=== PATIENT | female | born 2005 | race Caucasian/White ===

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

== ENCOUNTER 2023-08-01 21:16 | Emergency (ER) | payer OTHER ==
--- NOTE | 2023-08-01 21:39 | ED ---
Chest Pain HPI - General Chief Complaint: Chest Pain Stated Complaint: Chest Pain Time Seen by Provider: 08/01/23 21:33 Source: patient, RN notes reviewed Mode of arrival: ambulatory Limitations: no limitations - History of Present Illness Initial Comments: Patient is a 18 year old who presents to the emergency department for chest pain and syncopal episode. - Related Data Home Medications Medication Instructions Recorded Confirmed norgestimate-ethinyl estradioL 1 tab PO DAILY@1230 06/16/22 07/05/22 [[id number] Tablet] Previous Rx's Medication Instructions Recorded Hyoscyamine Sulfate [Levsin] 0.125 mg PO Q4H PRN #20 tab 06/16/22 Ondansetron Odt [Zofran Odt] 4 mg PO Q8HR PRN #15 tab 06/16/22 Pantoprazole [Protonix] 40 mg PO DAILY 21 Days #21 tab 06/16/22 Pantoprazole Sodium [Protonix] 20 mg PO DAILY #20 tab 07/05/22 Sucralfate [Carafate] 1 gm PO BID #20 tablet 07/05/22 Allergies Allergy/AdvReac Type Severity Reaction Status Date / Time amoxicillin Allergy Unknown Verified 07/05/22 21:20 clindamycin Allergy Rash/Hives Verified 07/05/22 21:20 ibuprofen [From Motrin] Allergy Unknown Verified 07/05/22 21:20 trimeprazine Allergy Rash/Hives Verified 07/05/22 21:20 Review of Systems ROS Statement: Those systems with pertinent positive or pertinent negative responses have been documented in the HPI. ROS Other: All systems not noted in ROS Statement are negative. Past Medical History Past Medical History: No Reported History History of Any Multi-Drug Resistant Organisms: None Reported Past Surgical History: Tonsillectomy Past Psychological History: Anxiety, Depression Smoking Status: Never smoker Past Alcohol Use History: None Reported Past Drug Use History: None Reported General Exam - General Exam Comments Initial Comments: Visual Physical Exam Vital signs reviewed General: Well-appearing, nontoxic, no acute distress. Head: Normocephalic, atraumatic Eyes: PERRLA, EOMI ENT: Airway patent Chest: Nonlabored breathing Skin: No visual rash, normal skin tone Neuro: Alert and oriented 3 Musculoskeletal: No gross abnormalities Limitations: no limitations Course Vital Signs 08/01/23 21:29 Temperature 98.8 F Pulse Rate 87 Respiratory 18 Rate Blood Pressure 99/70 O2 Sat by Pulse 98 Oximetry Chest Pain MDM - MDM I performed the QuickNote portion of this chart - Rach Harp PA-C Disposition Clinical Impression: Chest pain Disposition: LEFT AGAINST MEDICAL ADVICE Condition: Undetermined Referrals: Jayy Green III, MD [Primary Care Provider] - 1-2 days
[2023-08-01 21:45] VITALS: BP 99/70; PULSE 87; RESP 18; TEMP 98.8
[2023-08-01 22:36] LABS: Basophils % (A) 1 %; Eosinophils # (A) 0.3 k/uL (0-0.7); Eosinophils % (A) 4 %; HCT 38.6 % (34.0-46.0); HGB 13.3 gm/dL (11.4-16.0); Lymphocytes # (A) 3.1 k/uL (1.0-4.8); Lymphocytes % (A) 45 %; MCH 31.6 pg (25.0-35.0); MCHC 34.6 g/dL (31.0-37.0); MCV 91.3 fL (80.0-100.0); Mean Platelet Volume 7.3; Monocytes # (A) 0.4 k/uL (0-1.0); Monocytes % (A) 5 %; Neutrophils % (A) 44 %; Platelet Count 232 k/uL (150-450); RBC 4.22 m/uL (3.80-5.40); RDW 12.7 % (11.5-15.5)
--- NOTE | 2023-08-01 22:37 | XR ---
EXAM: XR Chest, 2 Views CLINICAL HISTORY: ITS.REASON XR Reason: Chest Pain TECHNIQUE: Frontal and lateral views of the chest. COMPARISON: No relevant prior studies available. FINDINGS: Lungs: Unremarkable. No consolidation. Pleural space: Unremarkable. No pneumothorax. Heart: Unremarkable. No cardiomegaly. Mediastinum: Unremarkable. Bones/joints: Unremarkable. IMPRESSION: Normal chest x-rays.
[2023-08-01 22:46] LABS: ALT 12 U/L (4-34); AST 20 U/L (14-36); African American GFR (CKD) >90 (>60 ml/min/1.73 sqM); Albumin 4.1 g/dL (3.5-5.0); Alkaline Phosphatase 36 U/L (38-126); Anion Gap 9 mmol/L; Blood Urea Nitrogen 9 mg/dL (7-17); Carbon Dioxide 22 mmol/L (22-30); Chloride 108 mmol/L (98-107); Glucose 121 mg/dL (74-99); Lipase 65 U/L (23-300); Magnesium 2.1 mg/dL (1.6-2.3); Non-African American GFR(CKD) >90 (>60 ml/min/1.73 sqM); Potassium 3.7 mmol/L (3.5-5.1); Sodium 139 mmol/L (137-145); Total Bilirubin 0.4 mg/dL (0.2-1.3); Total Protein 6.9 g/dL (6.3-8.2)
[2023-08-01 23:04] LABS: INR 1.1 (<1.2); Partial Thromboplastin Time 26.3 sec (22.0-30.0); Prothrombin Time 11.4 sec (10.0-12.5)
== END 2023-08-02 00:06 | disposition left against medical advice (07) ==
LOC: EC 21:16
DX: R07.9 Chest pain, unspecified (principal); Z53.29 Procedure and treatment not carried out because of patient's decision for other reasons; Z88.0 Allergy status to penicillin; Z88.1 Allergy status to other antibiotic agents; Z88.6 Allergy status to analgesic agent; Z88.2 Allergy status to sulfonamides
CPT/HCPCS: 36415; 71046; 80053; 83690; 83735; 84484; 85025; 85610; 85730; 93005; 99284

== ENCOUNTER → 2023-08-21 | Outpatient (CLI) | payer OTHER ==
--- NOTE | 2023-08-21 17:57 | CA ---
Exercise Stress Test Report Name: Brianne Goodson Exam Date: 08/21/2023 09:49 Exam Location: [facility] Stress Ht (in): 68 Wt (lb): 474 BSA: 2.95 Ordering Phys: Mireille Umana DO Referring Phys: Cynthia Spain PAC Technologist: Rinku Mccoy Age: 18 Gender: F : 2005 Procedure CPT: Indications: R07.9 CHEST PAIN R55 SYNCOPE AND COLLAPSE ICD-10 Codes: Patient History: ARIELLA, PALP. VAPES Medications: CONTROL Meds past 24 hrs: Pretest Chest Pain: STRESS TEST Richardson Protocol Exercise Duration (min:sec): 06:[address] Depressions (mm): Angina Score: Lester Score: Resting HR (bpm): 85 Peak HR (bpm): 178 Resting BP (mmHg): 91 / 63 Peak BP (mmHg): 134 / 63 MPHR: 200 Target HR: 170 % MPHR: 89 METS: 7.7 Total Dose: Peak Dose: Atropine: Double Product: 27567 BP Response: Stress Termination: Stress Symptoms: No chest pain or symptoms Stress Summary: The patient's target heart rate was achieved ECG ANALYSIS Resting ECG: Normal sinus rhythm for operative progression normal axis normal intervals Stress ECG: No significant ST segment depression CONCLUSIONS Poor exercise tolerance Negative stress test by EKG criteria Dr. Trevor Amaya MD (Electronically Signed) Final Date: 21 August 2023 17:56
== END | disposition home or self-care (01) ==
LOC: RADNMMAIN 09:26
PROVIDERS: ATTEND Family Medicine
DX: R07.9 Chest pain, unspecified (principal); R55 Syncope and collapse
CPT/HCPCS: 93017

== ENCOUNTER 2023-10-19 17:08 | Emergency (ER) | payer OTHER ==
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
--- NOTE | 2023-10-19 18:37 | US ---
EXAMINATION TYPE: US extremity nonvasc mass LT DATE OF EXAM: 10/19/2023 COMPARISON: NONE CLINICAL INDICATION: Female, 18 years old with history of L 3rd digit infection, r/o abscess; Pt's le ft middle finger acrylic nail got ripped off. Regular nail is still partially attached to skin. Pt st ates there was white pus coming out. R/O abscess TECHNIQUE: Left middle finger nail bed scanned FINDINGS: Compared to the left index finger, there appears to be some edema. There is some vascular flow. Limited exam due to dropout IMPRESSION: Limited study. No definite abscess is seen.
[2023-10-19] MEDS ORDERED: SULFAMETH-TMP DS STARTER PACK 2 TAB BTL PO STA (19:54)
[2023-10-19 20:10] VITALS: BP 116/82; PULSE 68; RESP 17; TEMP 98
== END 2023-10-19 20:02 | disposition home or self-care (01) ==
LOC: EC 17:08
DX: L03.012 Cellulitis of left finger (principal); F17.290 Nicotine dependence, other tobacco product, uncomplicated; Z86.59 Personal history of other mental and behavioral disorders; Z88.0 Allergy status to penicillin; Z88.1 Allergy status to other antibiotic agents; Z88.6 Allergy status to analgesic agent; Z88.8 Allergy status to other drugs, medicaments and biological substances
CPT/HCPCS: 99283

== ENCOUNTER 2023-12-07 08:36 | Emergency (ER) | payer OTHER ==
[2023-12-07 09:03] VITALS: RESP 18
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
[2023-12-07 09:47] LABS: Basophils % (A) 1 %; Eosinophils # (A) 0.2 k/uL (0-0.7); Eosinophils % (A) 4 %; HGB 13.5 gm/dL (11.4-16.0); Lymphocytes # (A) 2.2 k/uL (1.0-4.8); Lymphocytes % (A) 33 %; MCH 31.1 pg (25.0-35.0); MCV 94.3 fL (80.0-100.0); Mean Platelet Volume 7.4; Monocytes # (A) 0.3 k/uL (0-1.0); Monocytes % (A) 4 %; Neutrophils # (A) 3.7 k/uL (1.3-7.7); Neutrophils % (A) 56 %; Platelet Count 229 k/uL (150-450); RBC 4.35 m/uL (3.80-5.40); RDW 12.7 % (11.5-15.5); WBC 6.6 k/uL (4.0-11.0)
[2023-12-07 10:06] LABS: ALT 17 U/L (4-34); AST 25 U/L (14-36); African American GFR (CKD) >90 (>60 ml/min/1.73 sqM); Albumin 4.1 g/dL (3.5-5.0); Alkaline Phosphatase 49 U/L (38-126); Anion Gap 6 mmol/L; Blood Urea Nitrogen 9 mg/dL (7-17); Carbon Dioxide 24 mmol/L (22-30); Chloride 110 mmol/L (98-107); Glucose 96 mg/dL (74-99); Non-African American GFR(CKD) >90 (>60 ml/min/1.73 sqM); Potassium 4.5 mmol/L (3.5-5.1); Sodium 140 mmol/L (137-145); Total Bilirubin 0.4 mg/dL (0.2-1.3); Total Protein 6.9 g/dL (6.3-8.2)
[2023-12-07 10:19] LABS: HCG,Quantitative Serum 245.8 mIU/mL
--- NOTE | 2023-12-07 10:37 | US ---
EXAMINATION TYPE: Ultrasound OB <= 14 week fetus DATE OF EXAM: 12/07/2023 9:47 AM COMPARISON: NONE CLINICAL INDICATION: Female, 18 years old with history of Vaginal bleeding in ; patient had been clotting this am with cramping, EXAM PERFORMED: OBTA EXAM MEASUREMENTS: GESTATIONAL AGE / DATING Physician Established: Not yet established Dates by LMP: (5 weeks/6 days) EDC: 08-02-2024 Dates by First Scan: No previous this is first scan Dates by Current Scan for: No IUP seen at this time MATERNAL ANATOMY Uterus: 6.7 x 4.5 x 3.6cm Right Ovary: 4.1 x 2.2 x 1.9cm Left Ovary: 2.3 x 1.8 x 1.8cm Post CDS / Adnexa: wnl Presence of free fluid: no Presence of corpus luteal cyst: not seen Presence of subchorionic bleed: no GESTATION / SURVEY IUP: No IUP seen at this time Endometrium = 0.4cm Date of LMP: 10/27/2023 Beta HcG (if available): pending IMPRESSION: 1. Transabdominal scanning with no intrauterine seen. Note that the threshold for visualiza tion of an intrauterine gestational sac by transabdominal scanning is a beta-hCG of around 2500. 2. In the setting of a positive test, current differential considerations include too early to visualize intrauterine , failed , and nonvisualized ectopic . Appropri ate follow-up advised.
[2023-12-07 10:56] LABS: Appearance,Urine Clear (Clear); Bacteria,Urine Rare /hpf; Bilirubin,Urine Negative (Negative); Blood,Urine Small (Negative); Color,Urine Colorless; Glucose,Urine (UA) Negative (Negative); Ketones,Urine Negative (Negative); Leukocyte Esterase,Urine Negative (Negative); Nitrite,Urine Negative (Negative); PH, Urine 6.5 (5.0-8.0); Protein,Urine Negative (Negative); RBC,Urine 1 /hpf (0-5); Specific Gravity,Urine 1.003 (1.001-1.035); Squamous Epithelial Cell,Urine <1 /hpf (0-4); Urobilinogen,Urine <2.0 mg/dL (<2.0); WBC,Urine 1 /hpf (0-5)
[2023-12-07] MEDS: Rhogam IMMUNE GLOBULIN 1,500 UNIT/1 ML IM ONE (11:53)
[2023-12-07 12:04] VITALS: BP 130/80; PULSE 86; TEMP 98.1
== END 2023-12-07 12:04 | disposition home or self-care (01) ==
LOC: EC 08:36
DX: O20.0 Threatened abortion (principal); O99.331 Smoking (tobacco) complicating pregnancy, first trimester; F17.290 Nicotine dependence, other tobacco product, uncomplicated; Z86.59 Personal history of other mental and behavioral disorders; Z3A.01 Less than 8 weeks gestation of pregnancy; Z88.6 Allergy status to analgesic agent; Z88.0 Allergy status to penicillin; Z88.1 Allergy status to other antibiotic agents
CPT/HCPCS: 36415; 86900; 86901; 80053; 85025; 86850; 81001; 84702; 76801; 99284; 96372; J2790

== ENCOUNTER → 2023-12-09 | Outpatient (CLI) | payer OTHER | END | disposition home or self-care (01) | LOC: LABMAIN 12:51 | PROVIDERS: ATTEND Physician Assistant | DX: O03.9 Complete or unspecified spontaneous abortion without complication (principal) | CPT/HCPCS: 84702 ==

== ENCOUNTER 2024-03-05 07:52 | Day surgery (SDC) | payer OTHER ==
[2024-03-01 10:36] VITALS: BMI 20.5
[~2024-03-05 07:52] MED LIST: SODIUM CHLORIDE 0.9% 1,000 ML IV SCH
[2024-03-05] MEDS: SODIUM CHLORIDE 0.9% 500 ML 500 ML IV ONE (08:13)
[2024-03-05 08:19] VITALS: BP 96/60; PULSE 61; RESP 16; TEMP 97.8
--- NOTE | 2024-03-05 20:35 | P.EPPROC ---
- EP Procedure Note Electrophysiology Procedure Note: Diagnosis Recurrent syncope Twelve-lead EKG showed sinus rhythm normal MO narrow QRS normal ST segments normal QT interval Tilt table test per protocol Baseline blood pressure 93/54 mmHg, baseline heart rate 60 beats a minute Patient was tilted upright in angle of 70 degrees per protocol Her blood pressure remained between 90 to 100 mmHg systolic and diastolics mostly in the 50s. Heart rate increased to 90 beats a minute and then subsequently to about 104 beats a minute in the first 10 minutes It remained so until she was laid supine When she was laid supine her heart rate dropped down to 53 beats a minute Impression Normal twelve-lead EKG Orthostatic intolerance with heaviness in the chest and fatigue in the legs
== END 2024-03-05 09:27 | disposition home or self-care (01) ==
LOC: CATHEP 07:52
PROVIDERS: ATTEND Internal Medicine Clinical Cardiac Electrophysiology
DX: R55 Syncope and collapse (principal); R01.1 Cardiac murmur, unspecified; R00.2 Palpitations; Z88.0 Allergy status to penicillin; Z88.1 Allergy status to other antibiotic agents; Z88.6 Allergy status to analgesic agent; Z88.8 Allergy status to other drugs, medicaments and biological substances; F17.210 Nicotine dependence, cigarettes, uncomplicated; Z79.3 Long term (current) use of hormonal contraceptives
CPT/HCPCS: 81025; 93660

== ENCOUNTER → 2024-08-19 | Outpatient (CLI) | payer MEDICAID ==
[2024-08-19 15:11] LABS: HCT 40.2 % (37.2-46.3); HGB 13.2 g/dL (12.0-15.0); MCH 31.2 pg (27.0-32.0); MCHC 32.8 g/dL (32.0-37.0); Mean Platelet Volume 9.7 FL (9.5-12.2); NRBC Per 100 WBC 0 X 10*3/uL (0.00-0.01); Platelet Count 229 X 10*3/uL (140-440); RBC 4.23 X 10*6/uL (4.10-5.20); RDW 12.7 % (11.5-14.5); WBC 5.24 X 10*3/uL (4.50-10.00)
[2024-08-19 15:21] LABS: ALT 17 U/L (8-44); AST 22 U/L (13-35); Albumin 4.4 g/dL (3.8-4.9); Alkaline Phosphatase 49 U/L (41-126); BUN/Creat Ratio 11.44 Ratio (12.00-20.00); Blood Urea Nitrogen 10.3 mg/dL (9.0-27.0); Carbon Dioxide 22.9 mmol/L (21.6-31.8); Chloride 104 mmol/L (96-109); Chol/HDL Ratio 3.07 Ratio; Globulin 2.2 g/dL (1.6-3.3); Glucose 123 mg/dL (70-110); LDL Cholesterol,Calculated 99.9 mg/dL (0.0-131.0); Sodium 138 mmol/L (135-145); Total Bilirubin 0.6 mg/dL (0.3-1.2); Total Protein 6.6 g/dL (6.2-8.2); VLDL Calculation 14.72 mg/dL (5.00-40.00)
[2024-08-19 16:45] LABS: HSV I IgG Interp Positive (Negative); HSV II IgG Interp Negative (Negative)
[2024-08-19 16:46] LABS: HIV 2 AB Non-Reactive (Non-Reactive); HIV AB P24 Non-Reactive (Non-Reactive); HIV P24 AG Non-Reactive (Non-Reactive)
[2024-08-20 13:52] LABS: C. trachomatis,PCR Negative (Negative); N. gonorrhoeae,PCR Negative (Negative)
== END | disposition home or self-care (01) ==
LOC: LABWHC1 10:45
PROVIDERS: ATTEND Physician Assistant
DX: Z11.3 Encounter for screening for infections with a predominantly sexual mode of transmission (principal); Z13.220 Encounter for screening for lipoid disorders; K92.1 Melena; R73.01 Impaired fasting glucose; R53.83 Other fatigue
CPT/HCPCS: 36415; 80053; 80061; 80074; 83036; 84443; 85027; 86695; 86696; 86780; 87390; 87491; 87591

== ENCOUNTER 2024-09-02 08:11 | Day surgery (SDC) | payer MEDICAID ==
[2024-08-27 14:46] VITALS: BMI 21.7
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
[2024-09-02 08:45] VITALS: RESP 16; TEMP 98.1
[2024-09-02] MEDS: LACTATED RINGERS 1,000 ML BAG IV STA (08:54)
[2024-09-02] MEDS: IV FLUID CONTINUATION 1,000 ML IV ONE (08:55)
[2024-09-02] MEDS ORDERED: PROPOFOL 10 MG/ML 20 ML VIAL IV ONE (09:34)
[2024-09-02] MEDS ORDERED: LIDOCAINE 1% INJ 10MG/ML (20 ML MDV) ONE (09:34)
--- NOTE | 2024-09-02 09:49 | P.PCN ---
Date of Procedure: 09/02/24 Description of Procedure: PREOPERATIVE DIAGNOSIS: Gastrointestinal bleeding POSTOPERATIVE DIAGNOSIS: Gastritis. History of gastrointestinal bleeding OPERATION: Esophagogastroduodenoscopy with biopsies along esophagus, antrum and duodenum SURGEON: Whit Edouard MD ANESTHESIA: MAC. INDICATIONS: The patient is a 19-year-old female who presents with gastrointestinal bleeding. Benefits and risks of the procedure were described. Informed consent was obtained. DESCRIPTION: The patient was brought into the endoscopy suite and laid in the left lateral decubitus position. An Olympus gastroscope was passed along the posterior oropharynx down to the distal esophagus where the squamocolumnar junction was encountered at 42 cm from the incisors. The stomach was entered and no bile reflux was found. Additional findings are listed below. Biopsies with cold forceps were obtained of the antrum. The first through third portion of the duodenum was examined. Retroflexion of the scope confirmed Hill grade 2 lower esophageal valve. The squamocolumnar junction demonstrated LA grade A erosive esophagitis. The stomach was desufflated. The patient tolerated the procedure well. FINDINGS: Squamocolumnar junction 42 cm from the incisors. Diaphragmatic hiatus at 42 cm. Hill grade 2 lower esophageal valve. LA grade A erosive esophagitis. Biopsies obtained. Biopsies obtained of the duodenum. Chronic gastritis with biopsies obtained. RECOMMENDATIONS: Upper endoscopy as needed.
--- NOTE | 2024-09-02 10:10 | P.PCN ---
Date of Procedure: 09/02/24 Description of Procedure: PREOPERATIVE DIAGNOSIS: Gastrointestinal bleeding Change in bowel habits POSTOPERATIVE DIAGNOSIS: Microscopic colitis OPERATION: Colonoscopy to the cecum, ileocecal valve and appendiceal orifice. Colonoscopy with random cold forceps biopsies for microscopic colitis SURGEON: Whit Edouard MD. ANESTHESIA: MAC. INDICATIONS: The patient is a 19-year-old female who presents with altered stools including change in bowel habits and gastrointestinal bleeding. Benefits and risks were described and informed consent was obtained. DESCRIPTION OF PROCEDURE: The patient had undergone Suprep. The patient had been brought into the operating room and laid in the left lateral decubitus position. After adequate intravenous sedation, the rectum was examined with 2% lidocaine jelly. No external hemorrhoids were encountered. The rectal tone was within normal limits. No lesions were palpated in the rectal vault. An Olympus colonoscope was advanced until the cecum, ileocecal valve and appendiceal orifice were clearly viewed. The prep was good. No scattered diverticulosis was encountered. No colonic polyps were found. Cold forceps biopsies randomly were obtained for microscopic colitis. Retroflexion of the scope demonstrated grade 1 internal hemorrhoids without active bleeding or inflammation. The colon was desufflated. The patient had tolerated the procedure well. Withdrawal time was over 6 minutes. FINDINGS: Aronchick preparation quality scale 1+ (1-5) Internal hemorrhoids, grade 1 Redundant sigmoid colon requiring abdominal wall pressure No external prolapsed hemorrhoids. No arteriovenous malformations. No adenomatous polyps. Cold forceps biopsies obtained for microscopic colitis RECOMMENDATIONS: Lower endoscopy as needed Plan - Discharge Summary Discharge Rx Participant: No New Discharge Prescriptions: No Action No Known Home Medications Discharge Medication List No Known Home Medications 03/01/24 [History] Follow up Appointment(s)/Referral(s): Whit Edouard MD [STAFF PHYSICIAN] - 09/17/24 4:30 pm Patient Instructions/Handouts: Moderate Sedation (DC) Discharge Disposition: HOME SELF-CARE
[2024-09-02 10:51] VITALS: BP 103/84; PULSE 88
== END 2024-09-02 10:51 | disposition home or self-care (01) ==
LOC: ORWHC2ENDO 08:11
PROVIDERS: ATTEND Surgery Plastic and Reconstructive Surgery
DX: K29.51 Unspecified chronic gastritis with bleeding (principal); K64.0 First degree hemorrhoids; K21.00 Gastro-esophageal reflux disease with esophagitis, without bleeding; K51.90 Ulcerative colitis, unspecified, without complications; F41.9 Anxiety disorder, unspecified; F32.A Depression, unspecified; Z88.5 Allergy status to narcotic agent; Z90.89 Acquired absence of other organs; Z88.6 Allergy status to analgesic agent
CPT/HCPCS: 81025; 45380; 43239; J2003; J2704; 88305

== ENCOUNTER → 2024-09-26 | Outpatient (CLI) | payer MEDICAID ==
--- NOTE | 2024-09-27 17:34 | US ---
EXAMINATION TYPE: US gallbladder DATE OF EXAM: 09/26/2024 COMPARISON: 07/05/22 CLINICAL INDICATION: Female, 19 years old with history of R10.11 RUQ PAIN; RUQ pain after eating TECHNIQUE: Grayscale and color Doppler imaging of the right upper quadrant was performed. FINDINGS: EXAM MEASUREMENTS: Liver Length: 13.6 cm Gallbladder Wall: 0.23 cm CBD: 0.33 cm Right Kidney: 10.7 x 4.1 x 3.9 cm YARD HOSTLER NOTES: Pancreas: wnl Liver: hyperechoic area seen in rt lobe measuring 1.6 x 1.2 x 1.2cm Gallbladder: wnl Evidence for sonographic Scott's sign: No CBD: wnl Right Kidney: wnl IMPRESSION: Hyperechoic lesion within the right hepatic lobe which is most compatible in the absence of risk fact ors of a hepatic hemangioma. [facility], , 09/27/2024 5:32 PM
== END | disposition home or self-care (01) ==
LOC: RADUSWWP 07:14
PROVIDERS: ATTEND Surgery Plastic and Reconstructive Surgery
DX: R93.2 Abnormal findings on diagnostic imaging of liver and biliary tract (principal)
CPT/HCPCS: 76705

== ENCOUNTER → 2024-09-27 | Outpatient (CLI) | payer MEDICAID ==
--- NOTE | 2024-09-27 09:11 | NM ---
EXAMINATION TYPE: NM hepatobiliary w CCK DATE OF EXAM: 09/27/2024 COMPARISON: NONE CLINICAL INDICATION: Female, 19 years old with history of R10.11 Right upper quadrant pain; TECHNIQUE: DOSAGE: The patient received 8 0z Ensure plus and 5.3 mCi of Technetium 99m Choletec. FINDINGS: There is patchy hepatic extraction which could be artifactual. Correlate with scheduled ult rasound report. The gallbladder is seen by 10 minutes. There is biliary to bowel clearance not seen at 60 minutes which is a nonspecific finding. Ejection fraction is 90 %. IMPRESSION: 1. No evidence of cholecystitis. 2. Ejection fraction of 90% can occasionally be associated with hyperdynamic gallbladder. [facility], , 09/27/2024 9:09 AM
== END | disposition home or self-care (01) ==
LOC: RADNMMAIN 06:54
PROVIDERS: ATTEND Surgery Plastic and Reconstructive Surgery
DX: R10.11 Right upper quadrant pain (principal)
CPT/HCPCS: 78227; A9537; J2805

== ENCOUNTER → 2024-12-19 | Outpatient (CLI) | payer MEDICAID ==
[2024-12-19 18:38] LABS: HCT 39.1 % (37.2-46.3); HGB 13.1 g/dL (12.0-15.0); MCH 31.4 pg (27.0-32.0); MCHC 33.5 g/dL (32.0-37.0); MCV 93.8 FL (80.0-97.0); Mean Platelet Volume 9.5 FL (9.5-12.2); NRBC Per 100 WBC 0 X 10*3/uL (0.00-0.01); Platelet Count 232 X 10*3/uL (140-440); RBC 4.17 X 10*6/uL (4.10-5.20); WBC 6.51 X 10*3/uL (4.50-10.00)
== END | disposition home or self-care (01) ==
LOC: LABPAT 14:34
PROVIDERS: ATTEND Surgery Plastic and Reconstructive Surgery
DX: Z01.812 Encounter for preprocedural laboratory examination (principal); K81.9 Cholecystitis, unspecified
CPT/HCPCS: 85027

== ENCOUNTER 2024-12-20 13:36 | Day surgery (SDC) | payer MEDICAID ==
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
--- NOTE | 2024-12-20 09:06 | P.HPADDEND ---
H&P Addendum H&P Addendum Date: 12/20/24 Patient having delay in surgery today as she is arranging for coming to the hospital for surgery. Patient missed her earlier time slot due to lack of personal arrangements this morning.
--- NOTE | 2024-12-20 10:02 | P.PN ---
Progress Note - Text Progress Note Date: 12/20/24 Patient notified the office that she will be able to make her surgery. Surgery time being arranged for her case today
[~2024-12-20 13:36] MED LIST changes: +INDOCYANINE GREEN 25 MG VIAL IV STA; +LACTATED RINGERS 1,000 ML IV SCH; +LIDOCAINE 1% (10MG/ML) FOR IV START INTRADERMA PRN; +MIDAZOLAM 2 MG/2 ML VIAL IV PRN; +ONDANSETRON 4 MG/2 ML VIAL IVP PRN; -SODIUM CHLORIDE 0.9% 1,000 ML IV SCH; +fentaNYL (PF) 50 MCG/ML 2 ML AMP IVP PRN
[2024-12-20 14:12] VITALS: RESP 16
[2024-12-20] MEDS: ONDANSETRON 4 MG/2 ML VIAL IVP ONE (14:21)
[2024-12-20] MEDS: ACETAMINOPHEN TAB 500 MG TAB PO PRN (14:21)
[2024-12-20] MEDS: DEXAMETHASONE SOD PHOSPHATE 4 MG/ML 1 ML VIAL IV ONE (14:21)
[2024-12-20] MEDS: HEPARIN SODIUM,PORCINE 5,000 UNIT/ML 1 ML VIAL SQ PRN (14:21)
[2024-12-20] MEDS: IV FLUID CONTINUATION 1,000 ML IV ONE ×2 (14:22→17:02)
[2024-12-20] MEDS ORDERED: ROCURONIUM 10 MG/ML (5 ML VIAL) IV ONE (15:55)
[2024-12-20] MEDS ORDERED: NEOSTIGMINE 1 MG/ML 10 ML VIAL ONE (15:55)
[2024-12-20] MEDS ORDERED: LIDOCAINE 1% INJ 10MG/ML (20 ML MDV) ONE (15:55)
[2024-12-20] MEDS ORDERED: GLYCOPYRROLATE 0.2 MG/ML 2 ML VIAL ONE (15:55)
[2024-12-20] MEDS ORDERED: MIDAZOLAM 2 MG/2 ML VIAL ONE (15:55)
[2024-12-20] MEDS ORDERED: PROPOFOL 10 MG/ML 20 ML VIAL IV ONE (15:55)
[2024-12-20] MEDS ORDERED: fentaNYL (PF) 50 MCG/ML 2 ML AMP ONE (15:55)
[2024-12-20] MEDS ORDERED: SUCCINYLCHOLINE CHLORIDE 200 MG/10 ML VIAL IV ONE (15:55)
[2024-12-20] MEDS: BUPIVACAINE (PF) 0.25% 30 ML VIAL SQ ONE (15:55)
[2024-12-20] MEDS ORDERED: HYDROmorphone (PF) 1 MG/ML ONE (15:55)
[2024-12-20 17:15] VITALS: TEMP 97.1
--- NOTE | 2024-12-20 17:39 | P.OP ---
Date of Procedure: 12/20/24 Description of Procedure: SURGEON: WHIT EDOUARD MD PREOPERATIVE DIAGNOSES: 1. Chronic cholecystitis 2. Epigastric and right upper quadrant abdominal pain POSTOPERATIVE DIAGNOSES: 1. Chronic cholecystitis 2. Epigastric and right upper quadrant abdominal pain 3. Peritoneal adhesions OPERATION: Robotic-assisted da Court Xi laparoscopic cholecystectomy, multiport with FIREFLY ESTIMATED BLOOD LOSS: 5 mL. SPECIMENS REMOVED: Gallbladder. COMPLICATIONS: None. OPERATIVE FINDINGS: 1. Peritoneal adhesions, pericholecystic with features of chronic cholecystitis INDICATIONS: The patient is a 16-year-old female who presents with right upper quadrant abdominal pain including chronic cholecystitis. Robotic assisted laparoscopic approach was described. Benefits and risks of the procedure including but not limited to bleeding, infection, injury to the biliary tree was described. Informed consent was obtained. DESCRIPTION OF PROCEDURE: Patient was brought to the operating room, placed in supine position. After general induction, the abdomen had been prepped and draped in standard sterile fashion. The robotic da Court XI system was primed. After a timeout protocol was performed, the patient had been prepped and draped in standard sterile fashion. The patient was injected with indocyanine green. A 5 mm 0 degrees laparoscopic trocar entry was performed along the left upper quadrant. The abdomen insufflated to 15 mmHg pressure which was tolerated well. Diagnostic laparoscopy demonstrated no injury to bowel viscera or mesentery. The liver surface was unremarkable. Next, two 8 mm robotic ports were placed along the right upper abdomen. The camera 8-mm port was maintained along the epigastrium. Another 8 mm port was placed along the left upper abdominal wall after exchanging the 5 mm port. Please note that the ports were placed at least 10 to 15 cm away from the target anatomy of the gallbladder. The robot was docked along the left lateral abdomen. The patient was repositioned in reverse Trendelenburg position. Using a grasper for arm 1, a grasper for arm 4, including hook cautery for arm 3, the robotic system was docked and primed as described. Instruments were interchanged by the content assistant including hook cautery, Bovie cautery and clip appliers. I had sat at the console. The gallbladder was scarred with peritoneal adhesions. Lysis of adhesions was performed to free the gallbladder from the surrounding tissues. Dome down [place] was performed to the infundibulum. Next attention was brought to the infundibulum and cystic structures. The infundibulum and cystic duct were dissected free from surrounding tissues. The cystic duct was isolated. FIREFLY was used to identify the cystic artery and cystic structures. A critical view of safety was obtained. Large PLASTIC clips were used throughout the entire case. Using a clip subcontracts manager, 3 clips were placed at the junction of the infundibulum and cystic duct. The cystic duct was divided between clips. Next, the cystic artery was similarly clipped and cauterized. Electro-Bovie cautery was used to remove the gallbladder from the hepatic fossa. Hemostasis was checked and found to be adequate. The robot was undocked. I re-scrubbed into the case. Using a 10 mm Endo Catch bag via the left upper quadrant incision, the specimen was removed from the abdominal cavity. All pneumoperitoneum instruments were evacuated from the abdominal cavity. The incisions were reapproximated using 4-0 Monocryl in an interrupted subcuticular fashion. Fascial defects were less than 8 mm in size. Please note along the trocar sites, local anesthetic was placed as a field block prior to insertion of all instruments. Liquid glue was applied to the skin. At the end of the procedure needle, sponge, and instrument count had been verified correct by the animal laboratory technician. The patient was transferred to postanesthesia care unit in stable condition. Intraoperative films were shared with the patient's family. Plan - Discharge Summary Discharge Rx Participant: Yes New Discharge Prescriptions: New Simethicone [Gas-X] 125 mg PO AC-TID PRN #20 capsule PRN Reason: Pain Acetaminophen Tab [Tylenol Tab] 500 mg PO Q6H PRN #30 tablet PRN Reason: Pain Continue Omeprazole [PriLOSEC] 20 mg PO ONCE PRN PRN Reason: Pain Discharge Medication List Acetaminophen Tab [Tylenol Tab] 500 mg PO Q6H PRN #30 tablet 12/20/24 [Rx] Omeprazole [PriLOSEC] 20 mg PO ONCE PRN 12/20/24 [History] Simethicone [Gas-X] 125 mg PO AC-TID PRN #20 capsule 12/20/24 [Rx] Follow up Appointment(s)/Referral(s): Whit Edouard MD [STAFF PHYSICIAN] - 12/24/24 4:30 pm Patient Instructions/Handouts: Laparoscopic Cholecystectomy (DC) Activity/Diet/Wound Care/Special Instructions: NO LONG DRIVES OR AIRPLANE RIDES OVER 60 MINUTES FOR THE NEXT 2 WEEKS, 01/03/25, DUE TO HIGH RISK OF PULMONARY EMBOLISM/DVTs May drive in 72 hrs, 12/24/24 Recommend low-fat diet for the next 2 days. No lifting over 10 pounds in 2 weeks until 01/03/25 May shower. No bath tub soaks for two weeks until 01/03/25 Diet as tolerated. Use Tylenol, simethicone, scheduled for the next 24-48 hours for best pain relief. Use ice along incisions for today to prevent swelling. Discharge Disposition: HOME SELF-CARE
[2024-12-20] MEDS: SCOPOLAMINE 1 MG/72 HR PATCH TRANSDERM STA (17:50)
[2024-12-20] MEDS: HYDROmorphone 0.5 MG/0.5 ML SYRINGE IVP PRN (17:53)
[2024-12-20] MEDS: LACTATED RINGERS 1,000 ML IV ONE (18:30)
[2024-12-20 18:49] VITALS: BP 110/72; PULSE 66
== END 2024-12-20 19:06 | disposition home or self-care (01) ==
LOC: OR 13:36
PROVIDERS: ATTEND Surgery Plastic and Reconstructive Surgery
DX: K80.10 Calculus of gallbladder with chronic cholecystitis without obstruction (principal); K66.0 Peritoneal adhesions (postprocedural) (postinfection); F17.200 Nicotine dependence, unspecified, uncomplicated; Z88.0 Allergy status to penicillin; Z88.6 Allergy status to analgesic agent; Z88.1 Allergy status to other antibiotic agents
CPT/HCPCS: 47562; S2900; 81025; 88304